=== PATIENT | female | born 1955 | race Two or more races ===

== ENCOUNTER 2022-10-19 16:23 | Emergency (ER) | payer OTHER ==
[~2022-10-19] VITALS: Ht 154.9 cm; Wt 66.2 kg
[2022-10-19] MEDS ORDERED: DONEPEZIL HCL23 MG PO (16:58)
[2022-10-19] MEDS ORDERED: LUMIGAN2.5 M1 OP (16:59)
== END 2022-10-19 18:31 | disposition home or self-care (01) ==
LOC: ER 16:23
DX: S09.8XXA Other specified injuries of head, initial encounter (principal); W18.39XA Other fall on same level, initial encounter; Y93.89 Activity, other specified; Y92.234 Operating room of hospital as the place of occurrence of the external cause; M25.562 Pain in left knee

== ENCOUNTER → 2022-11-08 | Outpatient (CLI) | payer OTHER ==
[~2022-11-08] MED LIST: DONEPEZIL HCL23 MG PO; LUMIGAN2.5 M1 OP
== END | disposition home or self-care (01) ==
LOC: TOM 10:48
DX: K12.2 Cellulitis and abscess of mouth (principal)

== ENCOUNTER 2022-11-11 16:05 | Emergency (ER) | payer OTHER ==
[~2022-11-11] VITALS: Ht 162.6 cm; Wt 72.6 kg
== END 2022-11-11 20:13 | disposition home or self-care (01) ==
LOC: ER 16:05
DX: M27.40 Unspecified cyst of jaw (principal)